=== PATIENT | female | born 1980 ===

== ENCOUNTER 2023-03-27 08:15 | Inpatient (IN) | payer OTHER ==
[~2023-03-27] VITALS: Ht 154.9 cm; Wt 140.6 kg
[2023-03-27 09:20] LABS: HEMATOCRIT 40.9 % (36.0-45.00); HEMOGLOBIN 13.6 g/dL (12.0-15.00); MEAN CELL VOLUME 93.3 fL (80.00-100.00); MEAN CORPUSCULAR HEMOGLOBIN 30.9 pg (27.00-32.0); MEAN CORPUSCULAR HGB CONC 33.1 g/dl (32.0-36.0); PLATELET COUNT 261 K/uL (150-450); RED BLOOD COUNT 4.38 M/uL (4.00-6.00); RED CELL DISTRIBUTION WIDTH 14.4 % (11.5-14.5)
[2023-03-27 09:23] LABS: PH,URINE 5.5 (5.0-8.0); URINE APPEARANCE Clear; URINE BILIRRUBIN Negative (NEGATIVE); URINE BLOOD Moderate; URINE COLOR Yellow; URINE GLUCOSE Negative (NEGATIVE); URINE LEUKOCYTE Negative; URINE NITRATE Negative; URINE PROTEIN Negative (NEGATIVE); URINE UROBILINOGEN 0.2 E.U./dl
[2023-03-27] MEDS ORDERED: METFORMIN HCL1000 M2 PO (09:23)
[2023-03-27] MEDS ORDERED: AMLODIPINE BESYL5 MG PO (09:24)
[2023-03-27] MEDS ORDERED: IRBESARTAN150 MG PO (09:24)
[2023-03-27] MEDS ORDERED: CARVEDILOL25 M1 PO (09:24)
[2023-03-27] MEDS ORDERED: SYMBICORT 80/10.2 GM IH (09:25)
[2023-03-27] MEDS ORDERED: ATIVAN1 M1 PO (09:26)
[2023-03-27] MEDS ORDERED: RESTORIL30 MG PO (09:27)
[2023-03-27 09:28] LABS: URINE BACTERIA 496.3 uL (0.0-1933); URINE EPITHELIAL CELLS 21.1 uL (0.0-38.8); URINE RBC 10.1 uL (0.0-20.8); URINE WBC 9.4 uL (0.0-23.2)
[2023-03-27] MEDS ORDERED: ZANAFLEX4 M1 PO (09:28)
[2023-03-27] MEDS ORDERED: FENOFIBRATE130 MG PO (09:30)
[2023-03-27] MEDS ORDERED: FOLIC ACID0.8 M1 PO (09:31)
[2023-03-27] MEDS ORDERED: PRAVASTATIN SOD20 MG PO (09:31)
[2023-03-27] MEDS ORDERED: HYDRALAZINE HCL50 MG PO (09:31)
[2023-03-27] MEDS ORDERED: INDERAL XL80 MG PO (09:32)
[2023-03-27] MEDS ORDERED: WELLBUTRIN XL150 M1 PO (09:32)
[2023-03-27 09:33] LABS: INR 1.04; PARTIAL THROMBOPLASTIN TIME 25.4 SECONDS (22.0-34.0); PROTHROMBIN TIME 10.9 SECONDS (9.0-11.5)
[2023-03-27 09:49] LABS: ALBUMIN 3.7 gm/dL (3.4-5.0); BILIRUBIN TOTAL 0.21 mg/dL (0.3-1.2); CALCIUM 9.2 mg/dL (8.5-10.1); CREATININE SERUM 1.24 mg/dL (0.55-1.02); GFR 47.67; GLOBULINA 3.2 G/DL (2.4-3.5); POTASSIUM 4.39 mEq/L (3.5-5.1); TOTAL PROTEIN 6.9 gm/dL (6.4-8.2)
[2023-03-27] MEDS ORDERED: HALOPERIDOL2 MG PO (11:49)
[2023-03-27] MEDS ORDERED: TOUJEO SOL300 UNIT/1 (11:51)
== END 2023-04-04 12:31 | disposition home or self-care (01) | DRG 627 ==
LOC: O/R 04-03 06:11 → SURG 04-03 08:15 → SURH 04-03 18:21
PROVIDERS: ADMIT Otolaryngology; ATTEND Otolaryngology
PROC: 0GTK0ZZ Resection of Thyroid Gland, Open Approach (ICD-10-PCS; principal; 2023-04-03 12:30)
DX: E04.1 Nontoxic single thyroid nodule (principal); E05.00 Thyrotoxicosis with diffuse goiter without thyrotoxic crisis or storm; Z20.822 Contact with and (suspected) exposure to COVID-19